=== PATIENT | male | born 1975 | race Caucasian/White ===

== ENCOUNTER → 2018-07-06 | Outpatient (CLI) | payer OTHER ==
[2018-07-06 10:52] LABS: BASOPHILS # (AUTO) 0.02 x10^3/uL (0-0.1); BASOPHILS % (AUTO) 0 % (0-1); EOSINOPHILS # (AUTO) 0.11 x10^3/uL (0-0.4); EOSINOPHILS % (AUTO) 2 % (1-7); LYMPHOCYTES # (AUTO) 1.89 x10^3/uL (1-3.4); LYMPHOCYTES % (AUTO) 37 % (22-44); MD NO; MEAN CORPUSCULAR HEMOGLOBIN 31.2 pg (27.5-34.5); MEAN CORPUSCULAR HGB CONC 34.5 g/dL (33.2-36.2); MEAN CORPUSCULAR VOLUME 90.4 fL (81-97); MEAN PLATELET VOLUME 7.4 fL (7.4-10.4); MONOCYTES # (AUTO) 0.36 x10^3/uL (0.2-0.8); MONOCYTES % (AUTO) 7 % (2-9); NEUTROPHILS # (AUTO) 2.78 x10^3/uL (1.8-6.8); NEUTROPHILS % (AUTO) 54 % (42-75); PLATELET COUNT 398 x10^3/uL (130-400); RED BLOOD COUNT 5.05 x10^6/uL (4.38-5.82); RED CELL DISTRIBUTION WIDTH 12.4 % (9.4-14.8)
[2018-07-06 11:03] LABS: ALANINE AMINOTRANSFERASE 33 U/L (12-78); ALBUMIN 4.4 g/dL (3.4-5.0); ANION GAP 8 mmol/L (5-15); CALCIUM 9.3 mg/dL (8.5-10.1); CHLORIDE 106 mmol/L (98-107)
[2018-07-06 11:06] LABS: ALKALINE PHOSPHATASE 74 U/L (45-117); BILIRUBIN,TOTAL 0.5 mg/dL (0.2-1.0); TOTAL PROTEIN 8.4 g/dL (6.4-8.2)
== END | disposition home or self-care (01) ==
LOC: LAB 10:32
PROVIDERS: ATTEND Internal Medicine Hematology & Oncology
DX: C62.10 Malignant neoplasm of unspecified descended testis (principal)
CPT/HCPCS: 36415; 80053; 82105; 83615; 84702; 85025